=== PATIENT | female | born 1965 ===

== ENCOUNTER 2017-09-07 14:51 | Emergency (ER) | payer OTHER ==
[2017-09-07 15:36] VITALS: O2SAT 100
[2017-09-07] MEDS ORDERED: Sodium Chloride 0.9% 1,000 ML IV STA (16:56)
--- NOTE | 2017-09-07 17:06 | C.PDOC ---
History Of Present Illness <Armin Rodriguez - Last Filed: 09/07/17 17:03> <Maddy Barber - Last Filed: 09/07/17 20:32> 51 y/o F c no PMHx p/w R sided pelvic pain x 2 days. Pain is sharp, constant, nonradiating, associated with feeling of increased bladder pressure but no dysuria. Denies fever, chills, chest pain, dyspnea, nausea, vomiting, loss of appetite, hematuria, diarrhea, constipation. (Armin Rodriguez) <Armin Rodriguez - Last Filed: 09/07/17 17:03> <Jazlyn Barberyenifer - Last Filed: 09/07/17 20:32> Time Seen by Provider: 09/07/17 16:43 Chief Complaint (Nursing): Female Genitourinary Past Medical History - Social History Hx Alcohol Use: No Hx Substance Use: No - Immunization History Hx Tetanus Toxoid Vaccination: No Hx Influenza Vaccination: No Hx Pneumococcal Vaccination: No <Armin Rodriguez - Last Filed: 09/07/17 17:03> Family History: States: No Known Family Hx <Maddy Barber - Last Filed: 09/07/17 20:32> Vital Signs: Last Vital Signs Temp 98.9 F 09/07/17 17:30 Pulse 85 09/07/17 17:30 Resp 17 09/07/17 17:30 BP 112/75 09/07/17 17:30 Pulse Ox 100 09/07/17 17:30 Review Of Systems Except As Marked, All Systems Reviewed And Found Negative. Constitutional: Negative for: Fever Respiratory: Negative for: Shortness of Breath <JenniferArmin Aguero - Last Filed: 09/07/17 17:03> Physical Exam <JenniferArmin Aguero - Last Filed: 09/07/17 17:03> <RissamarvinJazlynyenifer - Last Filed: 09/07/17 20:32> - Physical Exam Additional Physical Exam Comments: Gen: NAD Head: NC Eyes: No scleral icterus ENT: MMM Neck: Supple Chest: No deformity CV: Regular rate Lungs: CTA b/l Back: No CVA tenderness Abd: Tenderness just R of suprapubic area Skin: No rash Extremities: No swelling Neuro: Alert, no focal deficit (Armin Rodriguez) ED Course And Treatment O2 Sat by Pulse Oximetry: 100 <Armin Rodriguez - Last Filed: 09/07/17 17:03> - Laboratory Results Result Diagrams: 09/07/17 17:47 09/07/17 17:47 Pulse Ox Interpretation: Normal Reevaluation Time: 20:29 Reassessment Condition: Improved <ElisabethMaddy - Last Filed: 09/07/17 20:32> Medical Decision Making <Armin Rodriguez - Last Filed: 09/07/17 17:03> <ElisabethMaddy - Last Filed: 09/07/17 20:32> Medical Decision Making: Patient declined analgesia. Will send for US to exclude ovarian cyst or torsion , check UA for UTI. If all negative, will require CT to rule out appy. (Armin Rodriguez) Disposition <Armin Rodriguez - Last Filed: 09/07/17 17:03> Counseled Patient/Family Regarding: Studies Performed, Diagnosis, Need For Followup, Rx Given - Disposition Disposition Time: 20:30 <Maddy Barber - Last Filed: 09/07/17 20:32> - Disposition Referrals: Flory Toribio MD [Medical Doctor] - Disposition: HOME/ ROUTINE Condition: FAIR Prescriptions: Naproxen [Naprosyn] 1 tab PO BID PRN #25 tab PRN Reason: Pain Instructions: Uterine Fibroids Forms: [employer] (Uzbek) - Clinical Impression Clinical Impression: Abdominal pain, Uterine fibroid
[2017-09-07] MEDS ORDERED: Sodium Chloride 0.9% 1,000 ML ONE (17:31)
[2017-09-07 17:50] LABS: BASO % 0.2 % (0.0-2.0); EOS # 0.1 K/uL (0.0-0.7); EOS % 0.5 % (0.0-4.0); HEMOGLOBIN 12.3 g/dL (11.0-16.0); LYMPH # 1.1 K/uL (1.0-4.3); LYMPH % 9.5 % (20.0-40.0); MEAN CELL VOLUME 91.8 fL (81.0-99.0); MEAN CORPUSCULAR HEMOGLOBIN 31.2 pg (27.0-31.0); MEAN PLATELET VOLUME 7.9 fL (7.2-11.7); MONO # 0.6 K/uL (0.0-0.8); MONO % 5.5 % (0.0-10.0); NEUT # 9.5 K/uL (1.8-7.0); NEUT % 84.3 % (50.0-75.0); PLATELET COUNT 236 K/uL (130-400); RBC 3.93 Mil/uL (3.80-5.20); RED CELL DISTRIBUTION WIDTH 13.4 % (11.5-14.5); WHITE BLOOD COUNT 11.3 K/uL (4.8-10.8)
[2017-09-07 17:53] LABS: HCG,QUALITATIVE URINE NEGATIVE (NEGATIVE)
[2017-09-07 17:55] LABS: SQUAMOUS EPITHIAL < 1 /hpf (0-5); URINE BACTERIA MOD (<OCC); URINE BILIRUBIN NEGATIVE (NEGATIVE); URINE BLOOD NEGATIVE (NEGATIVE); URINE CLARITY Clear (Clear); URINE COLOR Straw (YELLOW); URINE GLUCOSE (UA) NORMAL (Normal); URINE LEUKOCYTE ESTERASE NEGATIVE Leu/uL (Negative); URINE NITRATE NEGATIVE (NEGATIVE); URINE PROTEIN NEGATIVE (NEGATIVE); URINE UROBILINOGEN NORMAL mg/dL (0.2-1.0)
[2017-09-07 18:01] LABS: ALBUMIN 4.2 g/dL (3.5-5.0); ALT/SGPT 26 U/L (9-52); AST/SGOT 27 U/L (14-36); BLOOD UREA NITROGEN 9 mg/dL (7-17); CALCIUM 9.2 mg/dl (8.6-10.4); GFR AFRICAN-AMERICAN > 60; GFR NON-AFRICAN AMERICAN > 60
[2017-09-07 19:06] LABS: EOSINOPHIL 2 % (0-4); LYMPHOCYTE 11 % (20-40); MONOCYTE 3 % (0-10); NEUTROPHIL 84 % (50-75); PLATELET ESTIMATE NORMAL (NORMAL); TOTAL CELLS COUNTED 100
--- NOTE | 2017-09-07 20:22 | US ---
EXAM: US Pelvis CLINICAL HISTORY: 51 years old, female; Pain; Pelvic pain; Additional info: R pelvic pain, R/O cyst/torsion TECHNIQUE: Real-time transabdominal and vaginal pelvic ultrasound (complete) with image documentation. COMPARISON: No relevant prior studies available. FINDINGS: Uterus/cervix: Measured at 10.6 x 6.5 x 7.1 cm. Leiomyomatous changes. Dominant uterine fibroids noted. The largest measure 4 measure approximately 4-6 cm. 4.2 cm posterior intramural, 4.6 cm fundal intramural, 5.3 cm right pedunculated. 5.7 cm appears pedunculated. IUD visualized. Endometrium measured approximately 1.4 cm. Right ovary: Measured at 3.2 x 3 x 3.4 cm. Flow noted. Left ovary: Measured at 3 x 1.8 x 2.3 cm. Flow noted. Free fluid: Free fluid in cul-de-sac. IMPRESSION: Myometrium appears heterogeneous with evidence of dominant fibroids as above. IUD noted in expected position. Slight prominence of endometrial stripe measured approximately 1.4 cm, correlate with LMP. Free fluid in cul-de-sac.
[2017-09-07 21:06] VITALS: BP 104/68; PULSE 88; RESP 20; TEMP 98.7
== END 2017-09-07 21:03 | disposition home or self-care (01) ==
LOC: C.ER 14:51
DX: D25.9 Leiomyoma of uterus, unspecified (principal); R10.30 Lower abdominal pain, unspecified